=== PATIENT | male | born 1970 | race Caucasian/White ===

== ENCOUNTER 2025-07-16 08:03 | Outpatient (CLI) | payer OTHER, SELFPAY | END 2025-07-16 08:04 | disposition home or self-care (01) | PROVIDERS: Visit Provider Family Medicine | DX: E78.00 Pure hypercholesterolemia, unspecified (principal); I10 Essential (primary) hypertension; R79.89 Other specified abnormal findings of blood chemistry; R53.83 Other fatigue | CPT/HCPCS: 80053; 80061; 82728; 83540; 83550; 84270; 84402; 84403; G0103 ==